=== PATIENT | male | born 1955 ===

== ENCOUNTER 2018-05-28 01:22 | Outpatient (CLI) | payer BC | END 2018-05-28 23:59 | disposition home or self-care (01) | LOC: DIABETIC 01:22 | PROVIDERS: ATTEND Surgery | DX: Z01.818 Encounter for other preprocedural examination (principal); E66.01 Morbid (severe) obesity due to excess calories; G47.30 Sleep apnea, unspecified | CPT/HCPCS: 97802 ==

== ENCOUNTER 2018-07-02 02:02 | Outpatient (CLI) | payer BC | END 2018-07-02 23:59 | disposition home or self-care (01) | LOC: DIABETIC 02:02 | PROVIDERS: ATTEND Surgery | DX: Z01.818 Encounter for other preprocedural examination (principal); G47.30 Sleep apnea, unspecified; E66.01 Morbid (severe) obesity due to excess calories | CPT/HCPCS: 97802 ==

== ENCOUNTER 2018-07-18 01:57 | Outpatient (CLI) | payer BC | END 2018-07-18 23:59 | disposition home or self-care (01) | LOC: DIABETIC 01:57 | PROVIDERS: ATTEND Surgery | DX: Z01.818 Encounter for other preprocedural examination (principal); E66.01 Morbid (severe) obesity due to excess calories | CPT/HCPCS: G0108 ==

== ENCOUNTER 2018-08-20 05:13 | Outpatient (CLI) | payer BC | END 2018-08-20 23:59 | disposition home or self-care (01) | LOC: DIABETIC 05:13 | PROVIDERS: ATTEND Surgery | DX: Z01.818 Encounter for other preprocedural examination (principal); E66.01 Morbid (severe) obesity due to excess calories; Z71.3 Dietary counseling and surveillance | CPT/HCPCS: 97802 ==

== ENCOUNTER 2018-09-17 01:25 | Outpatient (CLI) | payer BC | END 2018-09-17 23:59 | disposition home or self-care (01) | LOC: DIABETIC 01:25 | PROVIDERS: ATTEND Surgery | DX: Z01.818 Encounter for other preprocedural examination (principal); E66.01 Morbid (severe) obesity due to excess calories | CPT/HCPCS: 97802 ==